=== PATIENT | female | born 1960 | race African-American/Black ===

== ENCOUNTER 2022-03-05 07:45 | Emergency (ER) | payer OTHER ==
[2022-03-05] MEDS ORDERED: Acetaminophen 500 MG TAB ONE (09:18)
== END 2022-03-05 10:15 | disposition home or self-care (01) ==
LOC: CSHERS 07:45
DX: M25.562 Pain in left knee (principal); I10 Essential (primary) hypertension

== ENCOUNTER 2023-08-06 17:29 | Emergency (ER) | payer OTHER ==
[2023-08-06] MEDS ORDERED: Lidocaine 1% PF 5 ML VIAL ONE (18:32)
== END 2023-08-06 19:23 | disposition home or self-care (01) ==
LOC: CSHERS 17:29
DX: T16.2XXA Foreign body in left ear, initial encounter (principal); I10 Essential (primary) hypertension; X58.XXXA Exposure to other specified factors, initial encounter
CPT/HCPCS: 99282

== ENCOUNTER 2023-09-24 08:13 | Emergency (ER) | payer OTHER ==
[2023-09-24] MEDS ORDERED: Ibuprofen 200 MG TAB ONE (09:46)
== END 2023-09-24 09:50 | disposition home or self-care (01) ==
LOC: CSHERS 08:13
DX: M25.521 Pain in right elbow (principal); I10 Essential (primary) hypertension
CPT/HCPCS: 99283